=== PATIENT | female | born 1990 | race American Indian/Alaskan Native ===

== ENCOUNTER 2017-11-11 21:16 | Outpatient (CLI) | payer MEDICAID, OTHER ==
[2017-11-11] MEDS ORDERED: LACTATED RINGERS 1,000 ML IV ONE (21:19)
[2017-11-11 21:36] VITALS: BP 115/63
[2017-11-11 22:05] LABS: Bilirubin,Urine NEG (Negative); Blood,Urine NEG (Negative); Color,Urine Yellow (Yellow); Mucus,Urine FEW /HPF; Protein,Urine <15 mg/dL mg/dL (Negative); Urobilinogen,Urine < 2.0 mg/dL (<2.0)
== END 2017-11-11 23:25 | disposition home or self-care (01) ==
LOC: TRG 21:16
PROVIDERS: ATTEND Obstetrics & Gynecology
DX: O47.02 False labor before 37 completed weeks of gestation, second trimester (principal); Z3A.27 27 weeks gestation of pregnancy
CPT/HCPCS: 59025; 81001; 96360; J7120